=== PATIENT | male | born 1970 | race Caucasian/White ===

== ENCOUNTER 2016-10-14 15:14 | Emergency (ER) | payer MEDICAID ==
[~2016-10-14] VITALS: Ht 175.3 cm; Wt 99.8 kg
[2016-10-14] MEDS ORDERED: NACL 0.9% 1,000 ML IV SCH (15:20)
[2016-10-14 15:32] VITALS: BP_SYST 129
[2016-10-14 16:19] LABS: BILIRUBIN,URINE NEGATIVE (NEGATIVE); BLOOD, URINE NEGATIVE (NEGATIVE); CLARITY/URINE CLEAR (CLEAR); COLOR,URINE YELLOW (YELLOW); GLUCOSE,URINE 1+ (NEGATIVE); KETONES,URINE NEGATIVE (NEGATIVE); LEUKOCYTE ESTERASE ,URINE NEGATIVE (NEGATIVE); NITRITE, URINE NEGATIVE (NEGATIVE); PROTEIN URINE NEGATIVE (NEGATIVE); UROBILINOGEN,URINE 0.2 (0.2-1.0)
[2016-10-14 16:29] LABS: BASOPHILS # (AUTO) 0.1 K/uL (0.0-0.2); BASOPHILS % (AUTO) 0.7 % (0.0-2.0); EOSINOPHILS # (AUTO) 0.2 K/uL (0.0-0.4); EOSINOPHILS % (AUTO) 1.8 % (0.0-4.0); HEMOGLOBIN 15.3 g/dL (14.0-18.0); LYMPHOCYTES # (AUTO) 2.1 K/uL (1.0-5.5); LYMPHOCYTES % (AUTO) 25.2 % (20.5-51.5); MEAN CORPUSCULAR HEMOGLOBIN 30 pg (27-31); MEAN CORPUSCULAR HGB CONC 34 % (32-36); MEAN CORPUSCULAR VOLUME 88 fL (79.0-98.0); MONOCYTES # (AUTO) 1.1 K/uL (0.0-1.0); MONOCYTES % (AUTO) 13.4 % (1.7-9.3); NEUTROPHILS % (AUTO) 58.9 % (40.0-70.0); PLATELET COUNT (AUTO) 218 K/uL (130-430); RED BLOOD CELL COUNT(AUTO) 5.13 MIL/uL (4.2-6.2); RED CELL DISTRIBUTION WIDTH 13.6 % (9.0-15.0); WHITE BLOOD COUNT (AUTO) 8.5 K/uL (4.8-10.8)
[2016-10-14] MEDS ORDERED: ACETAMINOPHEN 650 MG/20.3 ML UDC PO ONE (16:30)
[2016-10-14] MEDS ORDERED: KETOROLAC TROMETHAMINE 30 MG VIAL IVP ONE (16:30)
[2016-10-14] MEDS ORDERED: DEXAMETHASONE SOD PHOSPHATE 10 MG/ML VIAL IVP ONE (16:30)
[2016-10-14] MEDS ORDERED: IPRATROPIUM/ALBUTEROL SULFATE 3 ML AMPUL.NEB INH ONE (16:30)
[2016-10-14] MEDS ORDERED: PROCHLORPERAZINE EDISYLATE 10 MG/2 ML VIAL IVP ONE (16:30)
[2016-10-14 16:47] LABS: CALCIUM 8.7 mg/dL (8.4-11.0); CREATININE 1.01 mg/dL (0.55-1.30); POTASSIUM 3.4 mmol/L (3.5-5.1)
[2016-10-14 16:52] LABS: ALBUMIN 3.8 g/dL (3.4-4.8); TOTAL BILIRUBIN 0.4 mg/dL (0.0-1.0); TOTAL PROTEIN, SERUM 7.5 g/dL (6.4-8.3)
[2016-10-14] MEDS ORDERED: cefTRIAXone 1 GM IVPB PREMIX 50 ML IV ONE (17:30)
[2016-10-14] MEDS ORDERED: GLIP5TAB13 PO (17:52)
[2016-10-14] MEDS ORDERED: GLU850 PO (17:52)
[2016-10-14 19:50] VITALS: BP_SYST 122
[2016-10-15 08:12] LABS: BARBITURATE, URINE NEGATIVE (NEG <=200); BENZODIAZEPINE, URINE NEGATIVE (NEG <=150); CANNABINOID, URINE NEGATIVE (NEG <=50); COCAINE, URINE NEGATIVE (NEG <=150); METHAMPHETAMINES SCREEN,URINE NEGATIVE (NEG <=500); OPIATE, URINE NEGATIVE (NEG <=100); PHENCYCLIDINE SCREEN,URINE NEGATIVE (NEG <=25); UR TRICYCLIC ANTIDEPRESSANTS NEGATIVE (NEG <=300); URINE AMPHETAMINE NEGATIVE (NEG <=500); URINE METHADONE NEGATIVE (NEG <=200); URINE OXYCODONE SCREEN NEGATIVE (NEG <=100); URINE PROPOXYPHENE SCREEN NEGATIVE (NEG <=300)
== END 2016-10-14 19:50 | disposition home or self-care (01) ==
LOC: SED 15:14
DX: J20.9 Acute bronchitis, unspecified (principal); E11.9 Type 2 diabetes mellitus without complications; Z88.0 Allergy status to penicillin
CPT/HCPCS: 36415; 70450; 71010; 80053; 80307; 81003; 82962; 83605; 85025; 85379; 85610; 85730; 87040; 93005; 94640; 96365; 96375; 99285; J0696; J0780; J1100; J1885; J7030

== ENCOUNTER 2018-04-30 10:46 | Day surgery (SDC) | payer MEDICAID ==
[~2018-04-30] VITALS: Ht 172.7 cm; Wt 106.6 kg
[~2018-04-30 10:46] MED LIST: GLIP5TAB13 PO; GLU850 PO
[2018-04-30] MEDS ORDERED: LIDOCAINE 2%, 20 ML MDV INJ ONE (10:47)
[2018-04-30] MEDS ORDERED: methylPREDNISolone ACETATE 80 MG/ML IM ONE (10:47)
[2018-04-30] MEDS ORDERED: BUPIVACAINE /PF 0.25% 30 ML VIAL INJ ONE (10:47)
[2018-04-30] MEDS ORDERED: IOHEXOL 300 mgI/mL, 50 mL INFUS..BTL IV ONE (10:47)
[2018-04-30] MEDS ORDERED: DIPHENHYDRAMINE INJ 50 MG/ML VIAL IVP ONE (13:03)
[2018-04-30] MEDS ORDERED: MIDAZOLAM HCL 5 MG/5 ML VIAL IVP ONE (13:05)
[2018-04-30] MEDS ORDERED: MIDAZOLAM HCL 5 MG/5 ML VIAL ONE (16:46)
[2018-04-30 18:13] VITALS: BP_SYST 135
[2018-04-30] MEDS ORDERED: DIPHENHYDRAMINE INJ 50 MG/ML VIAL ONE (18:31)
== END 2018-04-30 14:55 | disposition home or self-care (01) ==
LOC: SDS 10:46
PROVIDERS: ATTEND Internal Medicine
DX: M51.16 Intervertebral disc disorders with radiculopathy, lumbar region (principal); E11.9 Type 2 diabetes mellitus without complications; Z98.890 Other specified postprocedural states; Z88.0 Allergy status to penicillin; Z79.899 Other long term (current) drug therapy
CPT/HCPCS: 62323; J1040; J1200; J2001; J2250; J3490; Q9967

== ENCOUNTER 2018-12-19 15:01 | Emergency (ER) | payer MEDICAID ==
[~2018-12-19] VITALS: Ht 172.7 cm; Wt 106.6 kg
[2018-12-19 15:07] VITALS: BP_SYST 160
--- NOTE | 2018-12-19 15:10 | NUR ---
Patient to ER bed 05 to gown for evaluation. Side rails up.
--- NOTE | 2018-12-19 15:33 | NUR ---
YAS Chen at bedside examining patient.
--- NOTE | 2018-12-19 15:35 | NUR ---
PATIENT CAME IN COMPLAINING OF WATERY DIRRHEA SINCE YESTERDAY X4 YESTERDAY AND X1 TODAY. PATIENT STATES THERE IS NO BLOOD. PATIENT STATES HE TOOK AMODIUM. PATIENT STATES HE HAS NO APPETITE. PATIENT COMPLAINING OF NAUSEA BUT NO VOMITING. PATIENT COMPLAINING OF PAIN 8/10 IN ABD. PATIENT GETS WORST WHEN HE DRINKS ANYTHING. PATIENT NOT COMPLAINING OF SOB. PATIENT ALERT AND ORIENTED X4.
[2018-12-19] MEDS ORDERED: NACL 0.9% 1,000 ML IV ONE (15:45)
[2018-12-19] MEDS ORDERED: MORPHINE 4 MG/ML INJ. SYRINGE IVP ONE (15:45)
[2018-12-19] MEDS ORDERED: ONDANSETRON HCL 4 MG/2 ML VIAL IVP ONE (15:45)
--- NOTE | 2018-12-19 15:47 | NUR ---
# 20 gauge angiocath placed to LEFT AC. Use of asceptic technique. Opsite placed over site. Blood return noted. Flushed with 10 cc of normal saline. No evidence of infiltration noted. Patient tolerated well.
--- NOTE | 2018-12-19 17:02 | NUR ---
Patient given written and verbal discharge instructions and verbalizes understanding. ER MD discussed with patient the results and treatment provided. Patient in stable condition. ID arm band removed. IV catheter removed intact and dressing applied, no active bleeding. Rx of naproxen given. Patient educated on pain management and to follow up with PMD. Pain Scale 3/10 tolerable. Sent with pain medication. Opportunity for questions provided and answered. Medication side effect fact sheet provided.
[2018-12-19 17:03] VITALS: BP_SYST 134
== END 2018-12-19 17:02 | disposition home or self-care (01) ==
LOC: SED 15:01
DX: K52.9 Noninfective gastroenteritis and colitis, unspecified (principal); E11.9 Type 2 diabetes mellitus without complications; I10 Essential (primary) hypertension; Z88.0 Allergy status to penicillin; Z79.899 Other long term (current) drug therapy
CPT/HCPCS: 82962; 96361; 96374; 96375; 99283; J2270; J2405; J7030

== ENCOUNTER 2019-01-11 22:17 | Emergency (ER) | payer MEDICAID ==
[~2019-01-11] VITALS: Ht 175.3 cm; Wt 106.6 kg
[2019-01-11 23:00] VITALS: BP_SYST 143
--- NOTE | 2019-01-11 23:00 | NUR ---
Patient to ER bed 3 to gown for evaluation. Side rails up. Assumed care.
--- NOTE | 2019-01-11 23:05 | NUR ---
Patient arrive via POV, AAOx4, and ambulatory with steady gait. Patient states c/c of perisitent cough, unable to sleep, increased salivation, productive cough. Patietn states it began Sunday, he went to urgent care on , and patient had no relief from prescribed medications. Will continue to follow up and monitor.
--- NOTE | 2019-01-11 23:07 | NUR ---
ER at bedside examining patient.
[2019-01-11] MEDS ORDERED: PREDNISONE 20 MG TABLET PO ONE (23:15)
[2019-01-11] MEDS ORDERED: IPRATROPIUM/ALBUTEROL SULFATE 3 ML AMPUL.NEB (DUONEB) INH ONE (23:15)
--- NOTE | 2019-01-11 23:23 | NUR ---
RT called made aware of pending breathing treatment.
[2019-01-11 23:43] LABS: BASOPHILS # (AUTO) 0.1 K/uL (0.0-0.2); BASOPHILS % (AUTO) 1.2 % (0.0-2.0); EOSINOPHILS # (AUTO) 0.3 K/uL (0.0-0.4); EOSINOPHILS % (AUTO) 5.1 % (0.0-4.0); HEMATOCRIT 42.5 % (36-54); HEMOGLOBIN 14.5 g/dL (14.0-18.0); LYMPHOCYTES # (AUTO) 2.3 K/uL (1.0-5.5); LYMPHOCYTES % (AUTO) 34.7 % (20.5-51.5); MEAN CORPUSCULAR HEMOGLOBIN 30 pg (27-31); MEAN CORPUSCULAR HGB CONC 34 % (32-36); MEAN CORPUSCULAR VOLUME 90 fL (79.0-98.0); MONOCYTES # (AUTO) 0.9 K/uL (0.0-1.0); MONOCYTES % (AUTO) 13.4 % (1.7-9.3); NEUTROPHILS % (AUTO) 45.6 % (40.0-70.0); PLATELET COUNT (AUTO) 251 K/uL (130-430); RED BLOOD CELL COUNT(AUTO) 4.75 MIL/uL (4.2-6.2); RED CELL DISTRIBUTION WIDTH 13.7 % (9.0-15.0); WHITE BLOOD COUNT (AUTO) 6.7 K/uL (4.8-10.8)
[2019-01-12] MEDS ORDERED: AZITHROMYCIN 250 MG TABLET PO ONE
[2019-01-12 00:10] LABS: ANION GAP 13 (5-15); CALCIUM 9.1 mg/dL (8.4-11.0); CHLORIDE 105 mmol/L (98-107); CREATININE 1.13 mg/dL (0.55-1.30); GLUCOSE 261 mg/dL (70-99); POTASSIUM 3.8 mmol/L (3.5-5.1); SODIUM SERUM 141 mmol/L (136-145); UREA NITROGEN, BLOOD 23 mg/dL (8-21)
[2019-01-12 00:19] LABS: ALANINE AMINOTRANSFERASE 43 U/L (12-78); ALBUMIN 3.6 g/dL (3.4-4.8); ASPARTATE AMINOTRANSFERASE 21 U/L (10-37); TOTAL BILIRUBIN 0.3 mg/dL (0.0-1.0)
[2019-01-12 00:20] LABS: GFR AFRICAN AMERICAN 88 mL/min (>90)
[2019-01-12 01:00] VITALS: BP_SYST 143
--- NOTE | 2019-01-12 01:00 | NUR ---
Patient given written and verbal discharge instructions and verbalizes understanding. ER MD discussed with patient the results and treatment provided. Patient in stable condition. ID arm band removed. Rx of Zithromax and Prednisone given. Patient educated on pain management and to follow up with PMD. Pain Scale 0/10. Opportunity for questions provided and answered. Medication side effect fact sheet provided.
== END 2019-01-12 01:00 | disposition home or self-care (01) ==
LOC: SED 22:17
DX: R05 Cough (principal); E11.9 Type 2 diabetes mellitus without complications; I10 Essential (primary) hypertension; Z90.89 Acquired absence of other organs; Z88.0 Allergy status to penicillin; Z79.84 Long term (current) use of oral hypoglycemic drugs
CPT/HCPCS: 36415; 71045; 80053; 83880; 84484; 85025; 94640; 99284; J7512; J7620; Q0144

== ENCOUNTER 2022-10-28 02:51 | Emergency (ER) | payer OTHER, MEDICAID ==
[~2022-10-28] VITALS: Ht 172.7 cm; Wt 99.8 kg
--- NOTE | 2022-10-28 02:53 | NUR ---
Note [email or web address] in EDM - 10/28/22 at 0319 by [email or web address] Admit bed requested Patient will be admitted to care of Dr. MCKEON. Admitted to TELEMETRY unit. Diagnosis SEPSIS Inpatient (Yes or No) YES Observation (Yes or No) NO Orientation concerns or request close to nursing station (Yes or No) NO Covid Status NEGATIVE On vent or bipap NO Isolation requirements NO Needs a sitter NO From Home (Yes or if No enter name of facility) YES Requires Dialysis (Yes or No) NO Med Rec Completed (Yes of No) PENDING
--- NOTE | 2022-10-28 03:00 | NUR ---
Patient to ER bed 06 to gown for evaluation. Side rails up. Report given to MEIR SU.
[2022-10-28 03:08] VITALS: BP_SYST 162
--- NOTE | 2022-10-28 03:15 | NUR ---
Pt bib self from home, ambulated to bed 6 with assist of walker. Pt A&Ox4, able to make needs known. Pt c/o constant back pain. Pt rates pain 03/25. Pt describes pain as sharp. Pt states he took hydrocodone at 1400 and 1900 on 10/27/2022. Pt denies SOB and chest pain. Pt denies N/V/D and fever/chills. Pt has a hx of HTN and DM. Safety measures in place.
--- NOTE | 2022-10-28 03:50 | NUR ---
ER Dr. Gardner at bedside examining patient.
[2022-10-28] MEDS ORDERED: LIDOCAINE PATCH 5% 1 EA TP ONE (04:00)
[2022-10-28] MEDS ORDERED: KETOROLAC TROMETHAMINE 15 MG VIAL IM ONE (04:00)
[2022-10-28] MEDS ORDERED: methocarbamoL 500 MG TABLET PO ONE (04:00)
[2022-10-28] MEDS ORDERED: methocarbamoL 500 MG TABLET ONE (04:55)
[2022-10-28] MEDS ORDERED: LIDO700A30 TP (05:17)
[2022-10-28] MEDS ORDERED: METH-634 PO (05:17)
[2022-10-28 06:04] VITALS: BP_SYST 130
--- NOTE | 2022-10-28 06:04 | NUR ---
Patient given written and verbal discharge instructions and verbalizes understanding. ER Dr Gardner discussed with patient the results and treatment provided. Patient in stable condition. ID arm band removed. Rx of Lidocaine and Robaxin given. Patient educated on pain management and to follow up with PMD. Pain Scale 2/10. Opportunity for questions provided and answered. Medication side effect fact sheet provided.
== END 2022-10-28 06:04 | disposition home or self-care (01) ==
LOC: SED 02:51
DX: M54.17 Radiculopathy, lumbosacral region (principal); M54.50 Low back pain, unspecified; G89.29 Other chronic pain; E11.9 Type 2 diabetes mellitus without complications; I10 Essential (primary) hypertension; Z88.0 Allergy status to penicillin; Z79.899 Other long term (current) drug therapy
CPT/HCPCS: 99283; 96372; J1885